=== PATIENT | female | born 1955 | race Two or more races ===

== ENCOUNTER 2020-11-28 16:08 | Inpatient (IN) | payer OTHER ==
[2020-11-28 16:48] LABS: BASOPHIL 0.1 % (0-2); EOSINOPHIL 6.1 % (0-7); LYMPHOCYTE 5.7 % (15-48); MCH 33.2 pg (25.0-31.0); MCHC 33.3 g/dL (32.0-36.0); MCV 99.7 fL (78.0-100.0); MONOCYTE 6.1 % (0-12); MPV 10.1 fL (6.0-9.5); NEUTROPHIL 81.2 % (41-80); NRBC 0; PLT 233 K/uL (150-400); RBC 3.31 M/uL (4.20-5.40); WBC 7.2 K/uL (4.0-10.5)
[2020-11-28 16:49] LABS: BILIRUBIN NEGATIVE (NEGATIVE); BLOOD NEGATIVE Ery/uL (NEGATIVE); CLARITY CLEAR (CLEAR); COLOR YELLOW (YELLOW); GLUCOSE (U) NORMAL (NORMAL); LEUKOCYTES NEGATIVE Leu/uL (NEGATIVE); NITRITE NEGATIVE (NEGATIVE); PROTEIN 1+ mg/dL (NEGATIVE); SPECIFIC GRAVITY 1.015 (1.001-1.030)
[2020-11-28 17:11] LABS: BUN/CREAT RATIO (CALC) 6.9 RATIO; CREATININE 1.01 mg/dL (0.51-0.95); POTASSIUM 3.8 mmol/L (3.5-5.1)
[2020-11-28 17:38] LABS: LACTIC ACID 1.6 mmol/L (0.4-1.9)
[2020-11-28] MEDS ORDERED: SODIUM BICARBO650 M1 PO (20:06)
[2020-11-28] MEDS ORDERED: DIAMOX250 MG PO (20:07)
[2020-11-28] MEDS ORDERED: KEPPRA100 MG/1 M PO (20:07)
[2020-11-28] MEDS ORDERED: [UNRECOGNIZED DRUG - OTHER] PO (20:08)
[2020-11-28] MEDS ORDERED: SYNTHROID25 MCG PO (20:09)
[2020-11-28] MEDS ORDERED: K-DUR20 MEQ PO (20:09)
[2020-11-28 21:27] LABS: BILIRUBIN NEGATIVE (NEGATIVE); BLOOD 1+ Ery/uL (NEGATIVE); CLARITY CLEAR (CLEAR); COLOR YELLOW (YELLOW); GLUCOSE (U) NORMAL (NORMAL); LEUKOCYTES NEGATIVE Leu/uL (NEGATIVE); NITRITE NEGATIVE (NEGATIVE); PROTEIN TRACE (LOW) mg/dL (NEGATIVE); SPECIFIC GRAVITY 1.015 (1.001-1.030); pH 8.5 (5.0-9.0)
[2020-11-28 21:47] LABS: BACTERIA 1+; SQUAMOUS EPITHELIAL CELLS RARE
--- NOTE | 2020-11-28 21:51 | NUR ---
PT URINE OUTPUT CHECKED AT 2 HR BIN, THERE WAS 135 ML OUT. CALLED TO WEATHER[employer] MACHINE OPERATOR AND HE SRTATED TO TURN FLUIDS UP TO 200 ML/HR. WILL CONTINUE TO MONITOR
[2020-11-28 22:02] LABS: FLU B NEGATIVE B (NEGATIVE B)
--- NOTE | 2020-11-28 23:53 | NUR ---
PT URINE OUTPUT CHECKED AND THERE WAS 400 ML URINE OUT OF [place]. MACHINE PLUG SHAPER ORDERED FLUIDS BACK AT 175 ML/HR AT THIS TIME. WILL CHECK AGAIN IN 2 HRS. WILL CONTINUE TO MONITOR
--- NOTE | 2020-11-29 01:56 | NUR ---
URINE OUTPUT WAS 400 ML AT THIS 2 HR BIN, FIRER PORTABLE BOILER NOTIFIED AND NO NEW ORDERS. KEEPING NS AT 175 ML/HR. WILL RE-CHECK IN 2 HRS. WILL CONTINUE TO MONITOR
[2020-11-29 05:01] LABS: BILIRUBIN NEGATIVE (NEGATIVE); BLOOD TRACE-INTACT Ery/uL (NEGATIVE); CLARITY CLEAR (CLEAR); COLOR YELLOW (YELLOW); GLUCOSE (U) NORMAL (NORMAL); LEUKOCYTES NEGATIVE Leu/uL (NEGATIVE); NITRITE NEGATIVE (NEGATIVE); PROTEIN NEGATIVE (NEGATIVE); SPECIFIC GRAVITY 1.015 (1.001-1.030); UROBILINOGEN 0.2 mg/dL (0.2-1.0); pH 8.5 (5.0-9.0)
[2020-11-29 05:08] LABS: BACTERIA TRACE; URINARY WBC RARE
[2020-11-29 05:54] LABS: BASOPHIL 0 % (0-2); EOSINOPHIL 0 % (0-7); HCT 29.4 % (37.0-47.0); HGB 9.7 g/dl (12.5-16.0); LYMPHOCYTE 5.9 % (15-48); MONOCYTE 2.3 % (0-12); MPV 10.3 fL (6.0-9.5); NRBC 0; PLT 208 K/uL (150-400); RBC 2.94 M/uL (4.20-5.40); RDW 15.6 % (11.5-14.0); WBC 6.1 K/uL (4.0-10.5)
[2020-11-29 06:27] LABS: BUN/CREAT RATIO (CALC) 8.1 RATIO; CREATININE 1.49 mg/dL (0.51-0.95); MAGNESIUM 2.2 mg/dL (1.8-2.4); PHOSPHORUS 4.3 mg/dL (2.6-4.7); POTASSIUM 4.1 mmol/L (3.5-5.1)
--- NOTE | 2020-11-29 22:22 | NUR ---
PT REQUESTED COUGH SYRUP TO HELP WITH HER DRY COUGH SHE HAS. [facility] NOTIFIED AND ORDERED SOMETHING FOR PT
--- NOTE | 2020-11-29 23:28 | NUR ---
PT IS COUGHING, TESSELON PEARLS WERE ORDERED, FLUIDS WERE TURNED DOWN TO 100 ML/HR. LUNGS ARE WHEEZY IN THE UPPERS AND DIMINISHED IN THE BASES. OXYEGEN IS 94% ON RA. WILL CONTINUE TO MIONITOR
[2020-11-30 05:24] LABS: BILIRUBIN NEGATIVE (NEGATIVE); BLOOD 1+ Ery/uL (NEGATIVE); CLARITY CLEAR (CLEAR); COLOR YELLOW (YELLOW); GLUCOSE (U) NORMAL (NORMAL); LEUKOCYTES NEGATIVE Leu/uL (NEGATIVE); NITRITE NEGATIVE (NEGATIVE); PROTEIN TRACE (LOW) mg/dL (NEGATIVE); UROBILINOGEN 0.2 mg/dL (0.2-1.0)
[2020-11-30 05:38] LABS: BACTERIA TRACE
[2020-11-30 06:55] LABS: BASOPHIL 0.3 % (0-2); EOSINOPHIL 7.6 % (0-7); LYMPHOCYTE 10.9 % (15-48); MCHC 32.1 g/dL (32.0-36.0); MCV 102.6 fL (78.0-100.0); MONOCYTE 5.5 % (0-12); MPV 10.4 fL (6.0-9.5); NEUTROPHIL 75.3 % (41-80); NRBC 0; PLT 224 K/uL (150-400); RBC 2.73 M/uL (4.20-5.40); RDW 15.9 % (11.5-14.0); WBC 7.5 K/uL (4.0-10.5)
[2020-11-30 07:15] LABS: ALBUMIN 2.4 g/dL (3.4-5.0); BILIRUBIN - TOTAL 0.3 mg/dL (0.2-1.0); BUN/CREAT RATIO (CALC) 10.1 RATIO; CREATININE 1.89 mg/dL (0.51-0.95); GLOBULIN (CALCULATION) 2.8 g/dL; POTASSIUM 3.6 mmol/L (3.5-5.1); TOTAL PROTEIN 5.2 g/dL (6.4-8.2)
[2020-12-01 05:39] LABS: BILIRUBIN NEGATIVE (NEGATIVE); BLOOD TRACE-INTACT Ery/uL (NEGATIVE); CLARITY CLEAR (CLEAR); COLOR YELLOW (YELLOW); GLUCOSE (U) NORMAL (NORMAL); LEUKOCYTES NEGATIVE Leu/uL (NEGATIVE); NITRITE NEGATIVE (NEGATIVE); PROTEIN NEGATIVE (NEGATIVE); UROBILINOGEN 0.2 mg/dL (0.2-1.0); pH 6.5 (5.0-9.0)
[2020-12-01 05:47] LABS: BASOPHIL 0.4 % (0-2); EOSINOPHIL 9.3 % (0-7); HCT 28.2 % (37.0-47.0); HGB 9.1 g/dl (12.5-16.0); LYMPHOCYTE 8.8 % (15-48); MCH 33.1 pg (25.0-31.0); MCHC 32.3 g/dL (32.0-36.0); MCV 102.5 fL (78.0-100.0); MONOCYTE 1.8 % (0-12); MPV 10.2 fL (6.0-9.5); NEUTROPHIL 79.2 % (41-80); NRBC 0; PLT 222 K/uL (150-400); RBC 2.75 M/uL (4.20-5.40); RDW 15.6 % (11.5-14.0); WBC 5.7 K/uL (4.0-10.5)
[2020-12-01 06:03] LABS: BACTERIA TRACE
[2020-12-01 06:07] LABS: ALBUMIN 2.4 g/dL (3.4-5.0); BILIRUBIN - TOTAL 0.5 mg/dL (0.2-1.0); BUN/CREAT RATIO (CALC) 11.6 RATIO; CREATININE 1.98 mg/dL (0.51-0.95); GLOBULIN (CALCULATION) 3.3 g/dL; MAGNESIUM 2.5 mg/dL (1.8-2.4); PHOSPHORUS 4.3 mg/dL (2.6-4.7); POTASSIUM 3.6 mmol/L (3.5-5.1); TOTAL PROTEIN 5.7 g/dL (6.4-8.2)
--- NOTE | 2020-12-01 10:09 | NUR ---
12/01/20 Ms. Dunham and her spouse live with their son. She is current with [facility] and wishes to continue services. Patient educated to [facility]. Pt has rw, wc, 3in1, and s. chair. - Please notify [facility] at [phone] if patient is discharged over the weekend.
[2020-12-01 12:55] LABS: BILIRUBIN NEGATIVE (NEGATIVE); BLOOD 1+ Ery/uL (NEGATIVE); CLARITY CLEAR (CLEAR); COLOR YELLOW (YELLOW); GLUCOSE (U) NORMAL (NORMAL); LEUKOCYTES NEGATIVE Leu/uL (NEGATIVE); NITRITE NEGATIVE (NEGATIVE); PROTEIN NEGATIVE (NEGATIVE); UROBILINOGEN 0.2 mg/dL (0.2-1.0); pH 7.5 (5.0-9.0)
[2020-12-01 18:20] LABS: BILIRUBIN NEGATIVE (NEGATIVE); BLOOD 1+ Ery/uL (NEGATIVE); CLARITY CLEAR (CLEAR); COLOR YELLOW (YELLOW); GLUCOSE (U) NORMAL (NORMAL); LEUKOCYTES NEGATIVE Leu/uL (NEGATIVE); NITRITE NEGATIVE (NEGATIVE); PROTEIN NEGATIVE (NEGATIVE); UROBILINOGEN 0.2 mg/dL (0.2-1.0)
[2020-12-01 23:14] LABS: BILIRUBIN NEGATIVE (NEGATIVE); BLOOD 1+ Ery/uL (NEGATIVE); CLARITY CLEAR (CLEAR); COLOR YELLOW (YELLOW); GLUCOSE (U) NORMAL (NORMAL); LEUKOCYTES NEGATIVE Leu/uL (NEGATIVE); NITRITE NEGATIVE (NEGATIVE); PROTEIN NEGATIVE (NEGATIVE); SPECIFIC GRAVITY 1.015 (1.001-1.030); UROBILINOGEN 0.2 mg/dL (0.2-1.0)
[2020-12-02 07:41] LABS: HCT 25.4 % (37.0-47.0); HGB 8.3 g/dl (12.5-16.0); MCH 32.9 pg (25.0-31.0); MCHC 32.7 g/dL (32.0-36.0); MCV 100.8 fL (78.0-100.0); MPV 9.8 fL (6.0-9.5); RBC 2.52 M/uL (4.20-5.40); RDW 14.9 % (11.5-14.0); WBC 4.6 K/uL (4.0-10.5)
[2020-12-02 08:02] LABS: ALBUMIN 2.3 g/dL (3.4-5.0); BILIRUBIN - TOTAL 0.5 mg/dL (0.2-1.0); BUN/CREAT RATIO (CALC) 9.9 RATIO; CREATININE 1.82 mg/dL (0.51-0.95); GLOBULIN (CALCULATION) 3.2 g/dL; MAGNESIUM 2.2 mg/dL (1.8-2.4); POTASSIUM 3.1 mmol/L (3.5-5.1); TOTAL PROTEIN 5.5 g/dL (6.4-8.2)
[2020-12-02 08:27] LABS: BILIRUBIN NEGATIVE (NEGATIVE); BLOOD 1+ Ery/uL (NEGATIVE); CLARITY CLEAR (CLEAR); COLOR YELLOW (YELLOW); GLUCOSE (U) NORMAL (NORMAL); LEUKOCYTES NEGATIVE Leu/uL (NEGATIVE); NITRITE NEGATIVE (NEGATIVE); PROTEIN NEGATIVE (NEGATIVE); UROBILINOGEN 0.2 mg/dL (0.2-1.0); pH 8.5 (5.0-9.0)
[2020-12-03 09:03] LABS: BILIRUBIN NEGATIVE (NEGATIVE); BLOOD 2+ Ery/uL (NEGATIVE); CLARITY CLEAR (CLEAR); COLOR YELLOW (YELLOW); GLUCOSE (U) NORMAL (NORMAL); LEUKOCYTES NEGATIVE Leu/uL (NEGATIVE); NITRITE NEGATIVE (NEGATIVE); PROTEIN NEGATIVE (NEGATIVE); UROBILINOGEN 0.2 mg/dL (0.2-1.0); pH 8.5 (5.0-9.0)
[2020-12-03 13:08] LABS: HCT 24.5 % (37.0-47.0); HGB 8.2 g/dl (12.5-16.0); MCH 32.8 pg (25.0-31.0); MCHC 33.5 g/dL (32.0-36.0); MPV 9.9 fL (6.0-9.5); RBC 2.5 M/uL (4.20-5.40); RDW 14.4 % (11.5-14.0); WBC 2.8 K/uL (4.0-10.5)
[2020-12-03 13:23] LABS: BUN/CREAT RATIO (CALC) 9.7 RATIO; CREATININE 1.76 mg/dL (0.51-0.95); MAGNESIUM 2.3 mg/dL (1.8-2.4)
[2020-12-03 17:20] LABS: BILIRUBIN NEGATIVE (NEGATIVE); BLOOD TRACE-INTACT Ery/uL (NEGATIVE); CLARITY CLEAR (CLEAR); COLOR YELLOW (YELLOW); GLUCOSE (U) NORMAL (NORMAL); LEUKOCYTES NEGATIVE Leu/uL (NEGATIVE); NITRITE NEGATIVE (NEGATIVE); PROTEIN NEGATIVE (NEGATIVE); UROBILINOGEN 0.2 mg/dL (0.2-1.0)
[2020-12-04 01:06] LABS: BILIRUBIN NEGATIVE (NEGATIVE); BLOOD 2+ Ery/uL (NEGATIVE); CLARITY CLEAR (CLEAR); COLOR YELLOW (YELLOW); GLUCOSE (U) NORMAL (NORMAL); LEUKOCYTES NEGATIVE Leu/uL (NEGATIVE); NITRITE NEGATIVE (NEGATIVE); PROTEIN NEGATIVE (NEGATIVE); UROBILINOGEN 0.2 mg/dL (0.2-1.0); pH 7.5 (5.0-9.0)
[2020-12-04 05:20] LABS: BASOPHIL 1.4 % (0-2); EOSINOPHIL 8.6 % (0-7); HCT 24.4 % (37.0-47.0); HGB 8.2 g/dl (12.5-16.0); LYMPHOCYTE 32.4 % (15-48); MCH 32.4 pg (25.0-31.0); MCHC 33.6 g/dL (32.0-36.0); MCV 96.4 fL (78.0-100.0); MONOCYTE 2.7 % (0-12); MPV 9.9 fL (6.0-9.5); NEUTROPHIL 54.9 % (41-80); NRBC 0; PLT 217 K/uL (150-400); RBC 2.53 M/uL (4.20-5.40); RDW 14.1 % (11.5-14.0)
[2020-12-04 05:33] LABS: ALBUMIN 2.4 g/dL (3.4-5.0); BILIRUBIN - TOTAL 0.4 mg/dL (0.2-1.0); BUN/CREAT RATIO (CALC) 8.6 RATIO; CREATININE 1.62 mg/dL (0.51-0.95); GLOBULIN (CALCULATION) 3.3 g/dL; POTASSIUM 2.9 mmol/L (3.5-5.1); TOTAL PROTEIN 5.7 g/dL (6.4-8.2)
[2020-12-04 05:35] LABS: WBC 2.2 K/uL (4.0-10.5)
[2020-12-04 09:18] LABS: BILIRUBIN NEGATIVE (NEGATIVE); BLOOD 1+ Ery/uL (NEGATIVE); CLARITY CLEAR (CLEAR); COLOR YELLOW (YELLOW); GLUCOSE (U) NORMAL (NORMAL); LEUKOCYTES NEGATIVE Leu/uL (NEGATIVE); NITRITE NEGATIVE (NEGATIVE); PROTEIN NEGATIVE (NEGATIVE); SPECIFIC GRAVITY 1.015 (1.001-1.030); UROBILINOGEN 0.2 mg/dL (0.2-1.0); pH >=9.0 (5.0-9.0)
--- NOTE | 2020-12-04 11:09 | NUR ---
RD visit for food preferences to improve p.o. intake. Pt on regular diet. Pt reports a few foods she likes; reported tired of many foods on menu. RD educated on EFY: obtained foods she would like, added this list to HT; will add a 2pm milkshake. patient does not wish to try ONS at this time. will monitor
[2020-12-04] MEDS ORDERED: AZITHROMYCIN250 MG PO (13:58)
[2020-12-04] MEDS ORDERED: LEVAQUIN500 MG PO (14:07)
--- NOTE | 2020-12-04 15:01 | NUR ---
12/04/20 [facility] was notified of discharge.
--- NOTE | 2020-12-04 16:14 | NUR ---
DISCHARGE ORDERS RECEIVED. PORT DEACCESSED USING HEPARIN. DISCHARGE PAPERS GIVEN TO PT AND FAMILY. ALL QUESTIONS ANSWERED.
== END 2020-12-04 15:55 | disposition home or self-care (01) | DRG 682 ==
LOC: FER 16:08 → FTCU 17:23
PROVIDERS: Emergency Medicine; Nurse Practitioner; ADMIT Internal Medicine
DX: N17.8 Other acute kidney failure (principal); J18.9 Pneumonia, unspecified organism; C85.80 Other specified types of non-Hodgkin lymphoma, unspecified site; Z68.42 Body mass index [BMI] 45.0-49.9, adult; N14.1 Nephropathy induced by other drugs, medicaments and biological substances; D72.819 Decreased white blood cell count, unspecified; T45.1X5A Adverse effect of antineoplastic and immunosuppressive drugs, initial encounter; G40.909 Epilepsy, unspecified, not intractable, without status epilepticus; E03.9 Hypothyroidism, unspecified; E66.01 Morbid (severe) obesity due to excess calories; E87.6 Hypokalemia
CPT/HCPCS: 36415; 71045; 71250; 80048; 80053; 80204; 81001; 81003; 83605; 83735; 83880; 84100; 84145; 85025; 87040; 87088; 87804; 87899; 94010; 94640; 96365; 97162; 97166; 97530-GP; 97535; G0378; J0360; J0456; J0640; J1200; J1642; J1956; J7030; J7050; J7070; U0002

== ENCOUNTER → 2022-04-05 | Day surgery (SDC) | payer MEDICARE, OTHER ==
[~2022-04-05] VITALS: Ht 165.1 cm; Wt 122.5 kg
[~2022-04-05] MED LIST: AMLODIPINE BESY10 MG PO; ASPIRIN EC81 MG PO; ATORVASTATIN CA10 MG PO; AZITHROMYCIN250 MG PO; DIAMOX250 MG PO; FLUOXETINE HCL40 MG PO; GLUCOTROL XL5 MG PO; HCTZ25 MG PO; JANUVIA100 MG PO; K-DUR20 MEQ PO; KEPPRA100 MG/1 M PO; LANTUS **100 UNITS/ SC; LEVAQUIN500 MG PO; LEVETIRACETAM500 MG PO; LOPRESSOR25 MG PO; NORCO 5-325 TA1 EACH PO; ROSUVASTATIN CAL5 MG PO; SODIUM BICARBO650 M1 PO; SYNTHROID25 MCG PO; [UNRECOGNIZED DRUG - OTHER] PO
[2022-04-05 09:12] LABS: HCT 43.3 % (37.0-47.0); HGB 14.1 g/dl (12.5-16.0); MCH 31.1 pg (25.0-31.0); MCHC 32.6 g/dL (32.0-36.0); MCV 95.6 fL (78.0-100.0); RBC 4.53 M/uL (4.20-5.40); RDW 12.7 % (11.5-14.0)
[2022-04-05 09:31] LABS: ALBUMIN 3.3 g/dL (3.4-5.0); BILIRUBIN - TOTAL 0.4 mg/dL (0.2-1.0); BUN/CREAT RATIO (CALC) 22.7 RATIO; CREATININE 0.66 mg/dL (0.51-0.95); GLOBULIN (CALCULATION) 3.7 g/dL; POTASSIUM 4.5 mmol/L (3.5-5.1)
== END | disposition home or self-care (01) ==
LOC: FAS 08:25
PROVIDERS: Surgery
DX: I87.2 Venous insufficiency (chronic) (peripheral) (principal); E03.9 Hypothyroidism, unspecified
CPT/HCPCS: 36415; 80053; J2250; J7120